=== PATIENT | female | born 1945 | race Caucasian/White ===

== ENCOUNTER 2017-09-04 10:16 | Inpatient (IN) ==
[2017-09-03 18:09] LABS: Basophils # (Auto) 0.1 K/mcL (0.0-0.3); Basophils % (Auto) 0.9 % (0.0-2.0); Eosinophils # (Auto) 0.3 K/mcL (0.0-0.7); Eosinophils % (Auto) 2.9 % (0.0-7.0); Granulocytes % (Auto) 57.7 % (38.0-78.0); Lymphocytes # (Auto) 2.7 K/mcL (1.5-4.8); Lymphocytes % (Auto) 31.2 % (15.5-49.0); Mean Cell Volume 93.2 fL (80.0-100.0); Mean Corpuscular HGB Conc 34.1 g/dL (31.0-36.0); Mean Corpuscular Hemoglobin 31.8 pg (26.0-34.0); Monocytes # (Auto) 0.6 K/mcL (0.1-0.9); Monocytes % (Auto) 7.3 % (1.0-12.0); Platelet Count 248 K/mcL (140-440); RBC 4.55 M/mcL (4.00-5.20); Red Cell Distribution Width 12.9 % (11.5-14.5)
[~2017-09-04 10:16] MED LIST: CELECOXIB 200 MG CAPSULE PO SCH; PREGABALIN 75 MG CAPSULE PO SCH; ceFAZolin 1 GM VIAL IV SCH; oxyCODONE 10 MG TAB.ER.12H PO SCH
[2017-09-04] MEDS ORDERED: ONDANSETRON 4 MG/2 ML VIAL IV ONE (13:00)
[2017-09-04] MEDS ORDERED: PROPOFOL 200 MG/20 ML VIAL IV ONE (13:00)
[2017-09-04] MEDS ORDERED: DEXAMETHASONE 10 MG/ML VIAL IV ONE (13:00)
[2017-09-04] MEDS ORDERED: fentaNYL 250 MCG/5 ML VIAL IV ONE (13:00)
[2017-09-04] MEDS ORDERED: MIDAZOLAM 5 MG/5 ML VIAL IV ONE (13:00)
[2017-09-04] MEDS ORDERED: LIDOCAINE HCL/PF 100 MG/5 ML SYRINGE IV ONE (13:00)
[2017-09-04] MEDS ORDERED: ROPIVACAINE HCL/PF 20 ML VIAL IJ ONE (13:00)
[2017-09-04] MEDS ORDERED: TRANEXAMIC ACID 1,000 MG/10 ML VIAL IV ONE ×2 (13:00→14:26)
[2017-09-04] MEDS ORDERED: BENZOCAINE/MENTHOL 1 LOZENGE PO PRN ×2 (14:26→14:33)
[2017-09-04] MEDS ORDERED: KETOROLAC 30 MG/ML VIAL IV PRN (14:26)
[2017-09-04] MEDS ORDERED: FLEETS ADULT ENEMA PR PRN (14:26)
[2017-09-04] MEDS ORDERED: POLYETHYLENE GLYCOL 3350 17 GM PACKET PO PRN (14:26)
[2017-09-04] MEDS ORDERED: MAGNESIUM HYDROXIDE 30 ML ORAL.SUSP PO PRN (14:26)
[2017-09-04] MEDS ORDERED: BISACODYL 10 MG SUPP.RECT PR PRN (14:26)
--- NOTE | 2017-09-04 14:26 | Brief Operative Note ---
Date of procedure: 09/04/17 Pre-op diagnosis: Left shoulder severe osteoarthritis Post-op diagnosis: same Procedure: Left total shoulder arthroplasty, bicep tenodesis Grafts/Implants: Yes (Depuy [place] peg 40, CAP 40 x 15) Anesthesia: GETA Findings: severe OA Complications: none Surgeon: Trace Calderon Toolroom Helper: Momo Barton Estimated blood loss (cc): 100 Specimens Removed/Pathology: none sent Condition: stable Disposition: PACU
[2017-09-04] MEDS ORDERED: IPRATROPIUM/ALBUTEROL 3 ML AMPUL.NEB NEB PRN (14:33)
[2017-09-04] MEDS ORDERED: ONDANSETRON 4 MG/2 ML VIAL IV PRN (14:33)
[2017-09-04] MEDS ORDERED: METHOCARBAMOL 1,000 MG/10 ML VIAL IV PRN (14:33)
[2017-09-04] MEDS ORDERED: FLUMAZENIL 0.1 MG/ML ML IV PRN (14:33)
[2017-09-04] MEDS ORDERED: fentaNYL 100 MCG/2 ML VIAL IV PRN (14:33)
[2017-09-04] MEDS ORDERED: LACTATED RINGERS 250 ML IV PRN (14:33)
[2017-09-04] MEDS ORDERED: diphenhydrAMINE 50 MG/ML VIAL IV PRN (14:33)
[2017-09-04] MEDS ORDERED: NALOXONE HCL 0.4 MG/ML VIAL IV PRN (14:33)
[2017-09-04] MEDS ORDERED: HYDROmorphone 2 MG/ML SYRINGE IV PRN (14:33)
[2017-09-04] MEDS ORDERED: LACTATED RINGERS 1,000 ML IV SCH (14:45)
--- NOTE | 2017-09-04 15:28 | XRay Report ---
CLINICAL INFORMATION: Postop total shoulder arthroplasty COMPARISON: None. FINDINGS: Total arthroplasty is anatomically aligned. No osseous abnormality. Particular soft tissue swelling seen as expected. There is possible enlargement of the left hilum which could indicate adenopathy or a mass. It is not well visualized on these films dedicated to the shoulder IMPRESSION: Left shoulder prostheses anatomically aligned. Possible enlargement of the left hilum which could potentially indicate pulmonary malignancy or enlarged lymph nodes. Suggest two-view chest x-ray. Interpreted and Authenticated by: Tony Ramos 09/04/17
[2017-09-04] MEDS: MEPERIDINE 25 MG/ML SYRINGE IV PRN ×2 (15:30→15:45)
[2017-09-04] MEDS ORDERED: ACETAMINOPHEN 1,000 MG/100 ML BOTTLE IV ONE (15:37)
[2017-09-04] MEDS: 0.9 % SODIUM CHLORIDE 1,000 ML IV SCH (17:23)
[2017-09-04] MEDS: ONDANSETRON 4 MG/2 ML VIAL IV PRN ×2 (17:41→21:32)
[2017-09-04] MEDS ORDERED: SENNOSIDES 1 TABLET PO SCH (21:00)
[2017-09-04] MEDS: ceFAZolin 1 GM VIAL IV SCH (21:32)
[2017-09-04] MEDS: DOCUSATE SODIUM 100 MG CAPSULE PO SCH (22:50)
[2017-09-04] MEDS: 0.9 % SODIUM CHLORIDE 10 ML SYRINGE IV SCH (22:51)
[2017-09-05] MEDS: 0.9 % SODIUM CHLORIDE 1,000 ML IV SCH (02:35)
[2017-09-05] MEDS: oxyCODONE/APAP 5/325MG TABLET PO PRN ×2 (05:08→12:07)
[2017-09-05] MEDS: ceFAZolin 1 GM VIAL IV SCH (05:08)
[2017-09-05] MEDS: 0.9 % SODIUM CHLORIDE 10 ML SYRINGE IV SCH (05:13)
[2017-09-05] MEDS: ONDANSETRON 4 MG/2 ML VIAL IV PRN (07:02)
--- NOTE | 2017-09-05 07:38 | Discharge Summary ---
Providers - Providers Patient information: Note initiated : 09/05/17 at 7:36 am Service Date, if different from initiated Date: [] Patient: Yael Yu 71 y/o F admitted on 09/04/17 for Left Total Shoulder Arthroplasty. Chief Complaint: [] Discharge date: 09/05/17 Hospitalization Hospital course: Pt was admitted for a total shoulder arthroplasty and underwent the procedure on the day of admission. She spent one night on the floor for IV pain meds, IV abx and PT. She was discharged on post-op day one with appropriate pain meds. She will f/u at [facility] in 10-14 days and will call with any questions or concerns. Discharge diagnosis: L shoulder oseoarthrosis Exam - Exam Clean and dry: Yes Weight bearing status: none Ortho Discharge - TSA - Patient Instructions Diet: Regular Diet Activity: non weight bearing Total Shoulder Protocol: Leave immobilizer in place except for bathing and ROM. Abduction pillow. Continue to wear sling until seen by physician. Codman Pendulum : These exercises use momentum produced by your body to move your shoulder joint. Bend your knees and shift your weight to your front leg, then back, allowing your arm to swing in the same directions. Using the same technique, alternately shift your weight between your right and left legs, allowing your arm to swing from side to side. These exercises are also performed in counterclockwise and clockwise circular motions. Typically these exercises are performed several times per day, for a set number repetitions or minutes, such as 20 times in a row or 5 minutes at a time. Dressing Care: May shower in 2 days - Follow Up Plan Follow Up Appointments: Trace Calderon MD [Physician] - 09/20/17 10:50 am Momo Barton PA-C [Physician Plasterer Spot] - Disposition: Home, Self-Care Prognosis: Good Rehab Potential: Good Overall status at discharge: patient is progressing back to baseline - Orders For Discharge Prescriptions: HYDROcodone/APAP 5/325MG [[place] 5/325Mg] 1 - 2 tab PO Q4HP PRN #90 tab PRN Reason: Pain Pending Studies Resuscitation Status Full Code Diet Regular Diet Start SunSep 04 Dinner Docusate Sodium (Colace) 100 mg PO BID LATOYA Last Admin: 09/04/17 22:50 Dose: Not Given Sodium Chloride (Sodium Chloride 0.9%) 1,000 mls @ 100 mls/hr IV .Q10H LATOYA Last Admin: 09/05/17 02:35 Dose: Not Given Admin: 09/04/17 17:23 Dose: 100 mls/hr Ondansetron HCl (Zofran) 4 mg IV Q4HP PRN PRN Reason: Nausea And Vomiting Last Admin: 09/05/17 07:02 Dose: 4 mg Admin: 09/04/17 21:32 Dose: 4 mg Admin: 09/04/17 17:41 Dose: 4 mg Oxycodone/Acetaminophen (Percocet 5-325 Mg) 0 tab PO Q4HP PRN PRN Reason: Pain Last Admin: 09/05/17 05:08 Dose: 1 tab Senna (Senokot) 2 tab PO HS LATOYA Last Admin: 09/04/17 22:50 Dose: Not Given Sodium Chloride (Saline Flush) 10 ml IV Q8 LATOYA Last Admin: 09/05/17 05:13 Dose: Not Given Admin: 09/04/17 22:51 Dose: Not Given Shift Summary 09/05/17 03:42 Shift Summary by Elena Pelayo A/O. IV in R hand infusing NS @ 100. Patient experienced N/V at start of shift, gave 4mg zofran. Colace and senokot were held d/t her N/V. At this time she has been able to keep her water and jello down w/ no reports of nausea. She has been sleeping most of the night. Dressing to L shoulder is CDI. She reports her arm is still numb, but she is able to move her fingers slightly. Bladder scanned at start of shift for >600ml, afterwards she voided 550ml, PVR was 32ml. She has been weaned off of 2L O2, sats in mid 90's. Up w/ 1 assist. VSS. Initialized on 09/05/17 03:42 - END OF NOTE
--- NOTE | 2017-09-05 08:17 | XRay Report ---
CLINICAL INFORMATION: Possible left hilar enlargement. COMPARISON: Left shoulder films of 09/04/2017. FINDINGS: Heart size, mediastinum and pulmonary vessels are normal. Lung volumes are mildly elevated with scattered scarring throughout both lungs suggesting chronic bronchitis. There is no evidence of mass or adenopathy in the left hilum. No effusions. Minimal compression fractures seen throughout the mid/lower thoracic spine IMPRESSION: Mild chronic bronchitis. No evidence of left hilar mass. The finding on previous shoulder films should be considered an artifact of patient rotation Interpreted and Authenticated by: Tony Ramos 09/05/17
--- NOTE | 2017-09-05 08:38 | Operative Note ---
DATE OF OPERATION: 09/04/2017 PREOPERATIVE DIAGNOSIS: Left shoulder severe osteoarthritis. POSTOPERATIVE DIAGNOSIS: Left shoulder severe osteoarthritis. PROCEDURE PERFORMED: 1. Left total shoulder arthroplasty using a DePuy CAP 40 x 15 and an Frederic Peg Glenoid 40 mm. 2. Left shoulder biceps tenodesis. SURGEON: Trace Calderon MD. COORDINATOR OF PLACEMENT: Gentry Barton PA-C. ANESTHESIA: General. DRAINS: None. SPECIMENS: None. COMPLICATIONS: None. BLOOD LOSS: 100 mL. POSTOPERATIVE CONDITION: Stable. INDICATIONS FOR SURGERY: This is a 71-year-old female who has had progressive worsening loss of motion and pain. Radiographs showed severe [id number] osteoarthritis. FINDINGS AT SURGERY: As above. Post implantation showed satisfactory position and stability. PROCEDURE IN DETAIL: The patient had been seen preoperatively. Informed consent had been obtained after discussion of risks and benefits of surgery. Risks including, but not limited to, bleeding, possibly requiring transfusion; infection, possibly requiring implant removal and prolonged IV antibiotics; injury to nerves, blood vessels, and other surrounding structures; anesthetic risks; incomplete or no resolution of symptoms; stiffness; pain; dislocation; possibility of needing further surgery. She understood these risks and wished to proceed. Correct operative site was marked in preoperative holding, and the patient was taken to the operating room and general anesthesia induced. She was carefully positioned in the beach chair position and pressure points carefully padded. The left shoulder and upper extremity were carefully prepped and draped in normal sterile fashion, and a time-out was performed verifying patient name, operative site, and plan. Ioban was used to cover all skin surfaces then a standard deltopectoral incision was made with scalpel through skin and subcutaneous tissue. Bovie was used for hemostasis and then we carefully bluntly dissected down onto the cephalic vein. This was dissected carefully laterally with the deltoid and then subdeltoid space was developed with blunt finger dissection. A Lemus deltoid retractor was placed and then blue handle retractor placed underneath the conjoined tendon. The biceps tendon was unroofed with a 15 blade scalpel and then Rios scissors used to amputate it off the superior glenoid. We then used a curved osteotome to create a lesser tuberosity osteotomy. A traction stitch was placed on this and then the humeral head was dislocated out anterior, released capsule around the inferior neck. She had very large osteophyte off the inferior humeral head. Curved osteotome was used to remove osteophyte and then rongeur. We then subluxed the humeral head posteriorly and began exposing the glenoid. What remained of the labrum was excised circumferentially and then capsule was released with Bovie, carefully kept right on bone around the inferior portion of the glenoid, as well as posteriorly. Once we had adequate exposure, guide pin was placed centrally, and then we reamed up to a size 40. We then went ahead and drilled our central peg. We then placed the peripheral peg drill guide and drilled our three peripheral pegs. A 40 mm Frederic Peg Glenoid was opened. DBX bone putty was placed in the central flutes and cement was mixed. We irrigated with Irrisept, after a minute pulse lavaged and then pressurized the cement in the three peripheral peg holes and then impacted the glenoid. This was held still until cement had fully hardened. We then redislocated the humeral head anteriorly. A cap drill guide was used to place our guide pin bicortically and then the 40 x 15 reamer was used. We then used osteotome and rongeur to remove the excess bone around and then checked with a trial which fully seated, so we opened a 40 x 15. Again we irrigated with Irrisept. After waiting a minute, pulse lavaged copiously with saline and then impacted the implant until it was fully seated. We then placed two holes in the biceps groove and then reduced the shoulder. Another Irrisept irrigation was done, and after a minute pulse lavage. We then used a #2 FiberWire to go through our holes in the bicipital groove and around the tuberosity creating a rhdxrj-ow-eefam stitch over the tuberosity. We then also placed several more khwmou-xn-wtlyf FiberWires in the rotator interval. A traction suture was used then to pass through the biceps tendon, creating a tenodesis and amputated the proximal portion of the biceps tendon. Another Irrisept irrigation was done, after a minute pulse lavage, and then #1 Vicryl was used to close the deltopectoral interval. A final Irrisept irrigation was done, and after a minute final pulse lavage, and then 2-0 Monocryl for subcutaneous and poli for skin. Xeroform and sterile dressing were applied. Arm was placed in an abductor immobilizer. The patient was awakened, extubated, and transferred to recovery in stable condition. [email or web address] Job ID: [id number] Doc ID: [id number] Trace Calderon MD
[2017-09-05] MEDS ORDERED: FLU VACC QS2017-18 36MOS UP/PF 60 MCG/0.5 ML SYRINGE IM ONE (10:00)
[2017-09-05] MEDS: DOCUSATE SODIUM 100 MG CAPSULE PO SCH (10:18)
== END 2017-09-05 12:30 | disposition home or self-care (01) | DRG 483 ==
LOC: MEDSUR 10:16
PROVIDERS: ADMIT Orthopaedic Surgery; ATTEND Orthopaedic Surgery

== ENCOUNTER 2018-07-18 13:00 | Inpatient (IN) ==
[2018-07-18 15:04] LABS: Appearance,Urine HAZY; Bacteria,Urine 0 /hpf (0); Bilirubin,Urine NEG (NEG); Color,Urine YELLOW; Glucose,Urine (UA) NEGATIVE (NEG); Leukocyte Esterase,Urine NEG /uL (NEG); Protein,Urine NEG (NEG); Specific Gravity,Urine 1.016 (1.000-1.035); Urine Blood NEG mg/dL (<0.03); Urine RBC 1 /hpf (0-1); Urine Squamous Epithelial Cell < 1 /hpf (0-4); Urine WBC < 1 /hpf (0-4); Urobilinogen,Urine NEG (NEG)
[2018-07-18 16:48] LABS: Blood Urea Nitrogen 17 mg/dl (8-23)
[2018-07-18 17:04] LABS: Basophils # (Auto) 0 K/mcL (0.0-0.3); Basophils % (Auto) 0.9 % (0.0-2.0); Eosinophils # (Auto) 0.1 K/mcL (0.0-0.7); Eosinophils % (Auto) 1.7 % (0.0-7.0); Granulocytes % (Auto) 49.1 % (38.0-78.0); Lymphocytes # (Auto) 2.1 K/mcL (1.5-4.8); Lymphocytes % (Auto) 42.3 % (15.5-49.0); Mean Cell Volume 93.7 fL (80.0-100.0); Mean Corpuscular HGB Conc 33.6 g/dL (31.0-36.0); Mean Corpuscular Hemoglobin 31.5 pg (26.0-34.0); Monocytes # (Auto) 0.3 K/mcL (0.1-0.9); Platelet Count 237 K/mcL (140-440); RBC 4.73 M/mcL (4.00-5.20); Red Cell Distribution Width 12.6 % (11.5-14.5)
[2018-07-24] MEDS ORDERED: SCOPOLAMINE 1 PATCH PATCH TOPICAL ONE (05:20)
[2018-07-24] MEDS ORDERED: SCOPOLAMINE 1 PATCH PATCH ONE (05:28)
[2018-07-24] MEDS ORDERED: PREGABALIN 75 MG CAPSULE PO SCH (07:00)
[2018-07-24] MEDS ORDERED: oxyCODONE 10 MG TAB.ER.12H PO SCH (07:00)
[2018-07-24] MEDS ORDERED: ceFAZolin 1 GM VIAL IV SCH (07:00)
[2018-07-24] MEDS ORDERED: CELECOXIB 200 MG CAPSULE PO SCH (07:00)
[2018-07-24] MEDS ORDERED: PROPOFOL 200 MG/20 ML VIAL IV ONE (07:35)
[2018-07-24] MEDS ORDERED: PHENYLEPHRINE 10 MG/ML VIAL IV ONE (07:35)
[2018-07-24] MEDS ORDERED: NEOSTIGMINE 1 MG/ML VIAL IV ONE (07:35)
[2018-07-24] MEDS ORDERED: ONDANSETRON 4 MG/2 ML VIAL IV ONE (07:35)
[2018-07-24] MEDS ORDERED: KETAMINE 100 MG/ML ML IV ONE (07:35)
[2018-07-24] MEDS ORDERED: MIDAZOLAM 2 MG/2 ML VIAL IV ONE (07:35)
[2018-07-24] MEDS ORDERED: LIDOCAINE HCL/PF 100 MG/5 ML SYRINGE IV ONE (07:35)
[2018-07-24] MEDS ORDERED: ESMOLOL 100 MG/10 ML VIAL IV ONE (07:35)
[2018-07-24] MEDS ORDERED: fentaNYL 100 MCG/2 ML VIAL IV ONE (07:35)
[2018-07-24] MEDS ORDERED: TRANEXAMIC ACID 1,000 MG/10 ML VIAL IV ONE (07:35)
[2018-07-24] MEDS ORDERED: ROCURONIUM 10 MG/ML ML IV ONE (07:35)
[2018-07-24] MEDS ORDERED: GLYCOPYRROLATE 0.2 MG/ML VIAL IV ONE (07:35)
[2018-07-24] MEDS ORDERED: BUPIVACAINE W/EPI 0.5% 50 ML VIAL IJ ONE (08:39)
[2018-07-24] MEDS ORDERED: PROMETHAZINE 25 MG/ML VIAL IM PRN (08:53)
[2018-07-24] MEDS ORDERED: MEPERIDINE 25 MG/ML SYRINGE IV PRN (08:53)
[2018-07-24] MEDS ORDERED: IPRATROPIUM/ALBUTEROL 3 ML AMPUL.NEB NEB PRN (08:53)
[2018-07-24] MEDS ORDERED: LABETALOL 5 MG/ML ML IV PRN (08:53)
[2018-07-24] MEDS ORDERED: MEPERIDINE 50 MG/ML INJECTION IM PRN (08:53)
[2018-07-24] MEDS ORDERED: ACETAMINOPHEN 850 MG/85 ML BOTTLE IV ONE (08:53)
[2018-07-24] MEDS ORDERED: METHOCARBAMOL 1,000 MG/10 ML VIAL IV PRN (08:53)
[2018-07-24] MEDS ORDERED: PROMETHAZINE 25 MG/ML VIAL IV PRN (08:53)
[2018-07-24] MEDS ORDERED: KETOROLAC 15 MG/ML VIAL IV PRN (08:55)
[2018-07-24] MEDS ORDERED: POLYETHYLENE GLYCOL 3350 17 GM PACKET PO PRN (08:55)
[2018-07-24] MEDS ORDERED: BENZOCAINE/MENTHOL 1 LOZENGE PO PRN (08:55)
[2018-07-24] MEDS ORDERED: FLEETS ADULT ENEMA PR PRN (08:55)
[2018-07-24] MEDS ORDERED: TRANEXAMIC ACID 1,000 MG/10 ML VIAL IV SCH (08:55)
[2018-07-24] MEDS ORDERED: MAGNESIUM HYDROXIDE 30 ML ORAL.SUSP PO PRN (08:55)
[2018-07-24] MEDS ORDERED: BISACODYL 10 MG SUPP.RECT PR PRN (08:55)
[2018-07-24] MEDS ORDERED: ONDANSETRON 4 MG/2 ML VIAL IV PRN (08:55)
--- NOTE | 2018-07-24 08:55 | Brief Operative Note ---
Date of procedure: 07/24/18 Pre-op diagnosis: Right shoulder severe OA Post-op diagnosis: same Procedure: Right total shoulder arthroplasty bicep tenodesis Grafts/Implants: Yes (Depuy CAP 40x15, 40 anchorpeg glenoid) Anesthesia: GLMA Findings: arthritis Complications: none Surgeon: Trace Calderon Computer Systems Designer: Momo Barton Estimated blood loss (cc): 100 Specimens Removed/Pathology: none sent Condition: stable Disposition: PACU
[2018-07-24] MEDS ORDERED: LACTATED RINGERS 1,000 ML IV SCH (09:00)
[2018-07-24] MEDS: fentaNYL 100 MCG/2 ML VIAL IV PRN ×4 (09:22→09:42)
--- NOTE | 2018-07-24 09:41 | Operative Note ---
DATE OF OPERATION: 07/24/2018 PREOPERATIVE DIAGNOSIS: Right shoulder severe osteoarthritis. POSTOPERATIVE DIAGNOSIS: Right shoulder severe osteoarthritis. PROCEDURE PERFORMED: 1. Right total shoulder arthroplasty using a DePuy Cap 40 x 15 humeral component and a 40 mm [place] Peg Glenoid. 2. Biceps tenodesis. SURGEON: Trace Calderon M.D. CONCRETE PAVING SUPERVISOR: Gentry Barton PA-C. ANESTHESIA: General. DRAINS: None. SPECIMENS: None. COMPLICATIONS: None. BLOOD LOSS: 100 mL. POSTOPERATIVE CONDITION: Stable. INDICATIONS FOR SURGERY: This is a 72-year-old female with progressive worsening right shoulder pain. Radiographs showed severe [id number]-[id number] osteoarthritis. She had a previous left total shoulder by me and was very pleased with that result. FINDINGS AT SURGERY: She did have severe arthritis. Post implantation showed satisfactory component position. PROCEDURE IN DETAIL: The patient had been seen preoperatively and informed consent had been obtained after discussion of risks and benefits of surgery. Risks including, but not limited to, bleeding; infection, possibly requiring implant removal and prolonged IV antibiotics; injury to nerves, blood vessels, and other surrounding structures; anesthetic risks; incomplete or no resolution of symptoms; stiffness; pain; dislocation; possibility of needing further revision surgery. She understood these risks and wished to proceed. Correct operative site was marked. The patient was taken to the operating room. General anesthesia induced. She was carefully positioned in the beach chair position and pressure points carefully padded. The right shoulder and upper extremity were then carefully prepped and draped in normal sterile fashion, and a time-out was performed verifying patient name, operative site, and plan. Ioban was used to cover all skin surfaces and then a standard anterior deltopectoral incision was made with scalpel through skin and subcutaneous tissue. Irrisept was irrigated, and then we bluntly dissected down medial to the cephalic vein between the deltoid and the pec muscles until we got to the subdeltoid space. This was bluntly dissected with finger dissection, and a Lemus deltoid retractor placed lateral until the conjoined tendon was identified, and the blue handle retractor was placed underneath. We palpated the biceps tendon exiting from underneath the pec and unroofed this along its course. I then amputated this off the glenoid with the Rios scissors. A large curved osteotome was used to make a lesser tuberosity osteotomy to detach our subscapularis and then a traction stitch was placed. We then dislocated the humerus out and released capsule around the inferior neck. Curved osteotome was used to remove osteophyte and then we subluxed the humeral head posteriorly and exposed the glenoid using a Fukuda retractor. Labrum was excised circumferentially as well as the biceps stump. I released capsule very carefully around the inferior neck, staying directly on bone with the Bovie. Once we had adequate exposure, a guide pin was placed centrally. We then reamed until we had contacted bone circumferentially. I then used the central peg reamer. We then placed the peripheral peg drill guide and drilled our three peripheral pegs. We opened a 40 [place] Peg Glenoid. The joint was filled with Irrisept. Cement was mixed. I did use DBX in the flutes of the central peg. After irrigating with saline, we then cemented the three holes peripherally and then impacted the implant. This was held absolutely still until cement had fully hardened. We then redislocated the humeral head out anteriorly using the cap guide for the size 40. We placed the guide pin and then reamed with the 40 x 15 reamer until we had contacted bone completely. We removed peripheral bone and then checked with the trial that fully seated. We then opened a 40 x 15 implant. We irrigated with Irrisept, after a minute pulse lavaged with saline, and then impacted the implant until it fully seated. We then did one more Irrisept irrigation, after a minute more pulse lavage. We then made two drill holes in the bicipital groove. A #2 FiberWire xqrizj-ve-xtqrf was placed through these holes and around the lesser tuberosity fragment and subscapularis insertion in a llsmea-ds-hghuy stitch. We repaired this down. We placed several more bzxnrq-az-rxbeyy in the rotator interval with a #2 FiberWire. Free needle was used to pass our traction sutures through bone laterally and tied as well. We also used xazacq-af-exgyp #2 FiberWire to tenodese the biceps in the bicipital groove. We then used #1 Vicryl running stitch to close the deltopectoral interval. Final Irrisept irrigation done, then a final pulse lavage, and then 2-0 Monocryl and poli for skin. Xeroform and sterile dressing were applied. Arm was placed in an abductor immobilizer. The patient was awakened, extubated, and transferred to recovery in stable condition. [email or web address] Job ID: [id number] Doc ID: [id number] Trace Calderon MD
--- NOTE | 2018-07-24 10:06 | XRay Report ---
CLINICAL INFORMATION: ITS.REASON: Post-OP Total Shoulder COMPARISON: None. FINDINGS: Right shoulder prostheses is anatomically aligned. No osseous abnormality. Soft tissues swelling seen as expected IMPRESSION: Negative Interpreted and Authenticated by: Tony Ramos 07/24/18
[2018-07-24] MEDS: 0.9 % SODIUM CHLORIDE 1,000 ML IV SCH ×2 (10:12→20:19)
[2018-07-24] MEDS: DOCUSATE SODIUM 100 MG CAPSULE PO SCH ×2 (10:17→20:22)
[2018-07-24] MEDS: 0.9 % SODIUM CHLORIDE 10 ML SYRINGE IV SCH ×2 (15:05→20:20)
[2018-07-24] MEDS: ceFAZolin 1 GM VIAL IV SCH ×2 (15:05→22:54)
[2018-07-24] MEDS ORDERED: SENNOSIDES 1 TABLET PO SCH (21:00)
[2018-07-25] MEDS: oxyCODONE/APAP 5/325MG TABLET PO PRN ×2 (02:16→09:04)
[2018-07-25] MEDS: 0.9 % SODIUM CHLORIDE 1,000 ML IV SCH (05:19)
[2018-07-25] MEDS: 0.9 % SODIUM CHLORIDE 10 ML SYRINGE IV SCH (05:35)
--- NOTE | 2018-07-25 07:47 | Discharge Summary ---
Providers - Providers Patient information: Note initiated : 07/25/18 at 7:44 am Service Date, if different from initiated Date: [] Patient: Yael Yu 72 y/o F admitted on 07/24/18 for Right Total Shoulder Arthroplasty. Chief Complaint: [] Discharge date: 07/25/18 Hospitalization Hospital course: Pt admitted for a R TSA. Pt Spent 1 night on the floor for IV pain meds, IV abx , and PT. Pt discharged on post-op day 1. Will f/u in 2 weeks at [facility]. Discharge diagnosis: R shoulder OA Exam - Exam Clean and dry: Yes Weight bearing status: none Ortho Discharge - TSA - Patient Instructions Diet: Regular Diet Activity: activity as tolerated Total Shoulder Protocol: Leave immobilizer in place except for bathing and ROM. Abduction pillow. Continue to wear sling until seen by physician. Codman Pendulum : These exercises use momentum produced by your body to move your shoulder joint. Bend your knees and shift your weight to your front leg, then back, allowing your arm to swing in the same directions. Using the same technique, alternately shift your weight between your right and left legs, allowing your arm to swing from side to side. These exercises are also performed in counterclockwise and clockwise circular motions. Typically these exercises are performed several times per day, for a set number repetitions or minutes, such as 20 times in a row or 5 minutes at a time. Dressing Care: May shower in 2 days - Follow Up Plan Follow Up Appointments: Momo Barton PA-C [Physician Search Engine Marketing Specialist] - 08/08/18 10:40 am Disposition: Home, Self-Care Prognosis: Good Rehab Potential: Good Overall status at discharge: patient is progressing back to baseline - Orders For Discharge Prescriptions: oxyCODONE/APAP [Percocet 5-325 mg] 1 - 2 tab PO Q4HP PRN #50 tab PRN Reason: Pain Level 3-6 Pending Studies Resuscitation Status Full Code Diet Regular Diet Start SunJul 24 857 Docusate Sodium (Colace) 100 mg PO BID [facility] Last Admin: 07/24/18 20:22 Dose: 100 mg Admin: 07/24/18 10:17 Dose: Not Given Sodium Chloride (Sodium Chloride 0.9%) 1,000 mls @ 100 mls/hr IV .Q10H [facility] Last Admin: 07/25/18 05:19 Dose: Infusion: 07/25/18 05:18 Dose: 0 mls/hr Admin: 07/24/18 20:19 Dose: 100 mls/hr Infusion: 07/24/18 20:12 Dose: 100 mls/hr Admin: 07/24/18 10:12 Dose: 100 mls/hr Morphine Sulfate (Morphine) 0 mg IV Q1HP PRN PRN Reason: PAIN LEVEL > 6 Last Admin: 07/24/18 22:19 Dose: 4 mg Admin: 07/24/18 18:23 Dose: 4 mg Admin: 07/24/18 11:41 Dose: 4 mg Admin: 07/24/18 10:12 Dose: 4 mg Ondansetron HCl (Zofran) 4 mg IV Q4HP PRN PRN Reason: Nausea And Vomiting Last Admin: 07/24/18 11:20 Dose: 4 mg Oxycodone/Acetaminophen (Percocet 5-325 Mg) 0 tab PO Q4HP PRN PRN Reason: PAIN LEVEL 3-6 Last Admin: 07/25/18 02:16 Dose: 2 tab Senna (Senokot) 2 tab PO HS [facility]OYA Last Admin: 07/24/18 20:22 Dose: 2 tab Sodium Chloride (Saline Flush) 10 ml IV Q8 [facility] Last Admin: 07/25/18 05:35 Dose: Admin: 07/24/18 20:20 Dose: Not Given Admin: 07/24/18 15:05 Dose: Not Given Shift Summary 07/25/18 05:40 Shift Summary by Becka Crouch&Reina4. VSS. Up with SBA. Dressing to surgical site to right shoulder is CDI; shoulder immobilizer in place. Patient stated that her nausea has subsided. Patient's IV to LFA was discontinued d/t infiltration. Patient is refusing new IV placement at this time. Tolerating pain with 2 tablets Percocet 5/325mg; last medicated at 0216. Voided 400ml this shift but continues to retain urine; last PVR was 467ml at 0523. Patient has been straight cathed x2 and stated that she does not wish to have a soni placed. Will update at bedside. Initialized on 07/25/18 05:40 - END OF NOTE
[2018-07-25] MEDS: DOCUSATE SODIUM 100 MG CAPSULE PO SCH (08:24)
== END 2018-07-25 12:25 | disposition home or self-care (01) | DRG 483 ==
LOC: MEDSUR 07-24 04:34
PROVIDERS: ADMIT Orthopaedic Surgery; ATTEND Orthopaedic Surgery